=== PATIENT | female | born 1950 | race Caucasian/White ===

== ENCOUNTER 2017-04-25 16:05 | Outpatient (CLI) | payer BC ==
--- NOTE | 2017-04-25 18:39 | SJPRAD ---
CHEST TWO VIEWS: 04/25/17 HISTORY: Cough, wheezing, and rhonchi in the right lung base. COMPARISON: None. FINDINGS: Chest two views: Normal cardiac silhouette. The pulmonary vessels and hilum are normal. Costophrenic angles are clear. Hyperinflation. Increased interstitial markings are presumed to be chronic and are predominantly in the lung bases. An infiltrate cannot be excluded. Adequate aeration of the upper lungs. No pneumothor ax. No osseous abnormalities. On the lateral projection, small left sided diaphragmatic hernia with f at is demonstrated. IMPRESSION: 1. Hyperinflation. 2. Presumed chronic changes. Interstitial opacity in the lung bases are presumed to be chronic. Comparison with prior imaging would be beneficial. If prior imaging is not available, consider short term followup radiograph in one week. POS: DIVYA
== END 2017-04-25 16:06 | disposition home or self-care (01) ==
LOC: MWLC RAD 16:05
PROVIDERS: ATTEND Internal Medicine Geriatric Medicine
DX: J20.9 Acute bronchitis, unspecified (principal); R91.8 Other nonspecific abnormal finding of lung field

== ENCOUNTER 2017-09-18 10:11 | Emergency (ER) | payer BC | END 2017-09-18 11:00 | disposition home or self-care (01) | LOC: SCSER 10:11 | DX: S01.81XA Laceration without foreign body of other part of head, initial encounter (principal); W22.8XXA Striking against or struck by other objects, initial encounter | CPT/HCPCS: 99283 ==

== ENCOUNTER 2019-05-24 08:41 | Outpatient (CLI) | payer BC ==
--- NOTE | 2019-05-24 11:37 | ULT ---
RIGHT UPPER QUADRANT ULTRASOUND: Date: 05/24/2019 COMPARISON: None. HISTORY: Hepatic cyst. TECHNIQUE: Multiplanar Ramos scale sonographic imaging of the right upper quadrant obtained. FINDINGS: The pancreas is not well evaluated secondary to obscuration by bowel gas. The hepatic parenchyma is m ildly heterogeneous and echogenic suggesting a degree of steatosis. The small hypoechoic lesion without internal blood flow within the left lobe of the liver measuring 1 .0 x 0.7 x 0.6 cm suggesting a small, complex cyst, similar when compared to a CT examination perform ed 12/05/2016. That study demonstrated additional cysts which are not visualized on this study second red to technique. Common bile duct measures 2-3 mm, within normal limits. No gallbladder wall thickening or pericholecy stic fluid. No gallstones are noted. The right kidney measures 13.8 cm in craniocaudal dimension and demonstrates no stone, hydronephrosis , or mass. Cnc Manufacturing Engineer reports a negative Regan's sign. IMPRESSION: No acute findings. There is a very small, mildly complex cyst noted within the left lobe of the liver . Increased echogenicity of the hepatic parenchyma suggests hepatocellular disease, such as steatosis , limiting detailed assessment of the hepatic parenchyma. POS: TPC
== END 2019-05-24 08:42 | disposition home or self-care (01) ==
LOC: SCSULT 08:41
PROVIDERS: ATTEND Family Medicine
DX: K76.89 Other specified diseases of liver (principal); R93.2 Abnormal findings on diagnostic imaging of liver and biliary tract
CPT/HCPCS: 76705

== ENCOUNTER 2019-07-04 12:08 | Outpatient (CLI) | payer BC ==
--- NOTE | 2019-07-04 12:31 | RAD ---
EXAM: Two views chest PROVIDED CLINICAL HISTORY: None COMPARISON: None FINDINGS: Cardiac and mediastinal silhouette appears within normal limits. Lungs appear free of significant opa city. No pleural fluid or pneumothorax apparent. IMPRESSION: No evidence for an acute cardiopulmonary process.
== END 2019-07-04 12:09 | disposition home or self-care (01) ==
LOC: BICRAD 12:08
PROVIDERS: ATTEND Internal Medicine Cardiovascular Disease
DX: I77.810 Thoracic aortic ectasia (principal)
CPT/HCPCS: 71046

== ENCOUNTER 2019-08-14 08:37 | Observation (INO) | payer BC, MEDICARE ==
[2019-08-14] MEDS ORDERED: Aspirin Chewable 81 MG TAB ONE (09:06)
[2019-08-14] MEDS ORDERED: Nitroglycerin 2% Ointment 1 INCH/1 GM Packet ONE (09:06)
[2019-08-14 09:19] LABS: #Basophils 0.1 thou/uL (0.0-0.2); #Eosinphils 0.3 thou/uL (0.0-0.7); #Lymphocytes 1.6 thou/uL (1.20-3.40); #Monocytes 0.7 thou/uL (0.11-0.59); #Neutrophils 5.6 thou/uL (1.40-6.50); %Basophils 1.1 % (0.0-1.0); %Eosinophils 3.3 % (0.0-10.0); %Lymphocytes 19.1 % (21.0-51.0); %Monocytes 8.3 % (0.0-10.0); %Neutrophils 68.2 % (42.0-75.0); Hemoglobin 16.1 g/dL (12.0-16.0); Mean Corpuscular HGB CONC 34.7 g/dL (32.0-36.0); Mean Platelet Volume 5.9 fL (7.4-10.4); Platelet Count 354 thou/uL (130-400); RBC Distribution Width 12.6 % (11.5-14.5); Red Blood Cell (RBC) Count 4.72 mill/uL (4.20-5.40); White Blood Cell (WBC) Count 8.1 thou/uL (4.8-10.8)
--- NOTE | 2019-08-14 09:25 | RAD ---
PORTABLE CHEST: Date: 08/14/2019 HISTORY: Chest pressure with irregular heartrate. FINDINGS: Heart size is slightly enlarged. Aorta is mildly tortuous. The lungs are clear of infiltrates. There are no signs of failure. IMPRESSION: Mild cardiomegaly. POS: ALEJO
[2019-08-14 09:41] LABS: ALT (SGPT) 10 U/L (8-55); AST (SGOT) 12 U/L (5-34); Albumin 4.1 g/dL (3.4-4.8); Alkaline Phosphatase 100 U/L (40-110); Anion Gap 14 mmol/L (10-20); BUN (Urea Nitrogen) 14 mg/dL (9.8-20.1); Bilirubin, Total 0.6 mg/dL (0.2-1.2); CK (CPK) 44 U/L (29-168); Calc. Creatinine Clearance 0 mL/min (70-130); Calcium 9.3 mg/dL (7.8-10.44); Carbon Dioxide 25 mmol/L (23-31); Chloride 106 mmol/L (98-107); Estimated GFR-MDRD 68; Globulin 3.1 g/dL (2.4-3.5); Glucose 95 mg/dL (80-115); Potassium 4.6 mmol/L (3.5-5.1); Protein, Total 7.2 g/dL (6.0-8.3); Sodium 140 mmol/L (136-145)
[2019-08-14] MEDS ORDERED: Acetaminophen 325 MG TAB PO PRN (12:42)
[2019-08-14 13:38] LABS: Troponin I 0.035 ng/mL (< 0.028)
[2019-08-14 14:07] VITALS: BMI 44.1
--- NOTE | 2019-08-14 15:26 | HP ---
PRIMARY CARE: Zac Collazo MD CHIEF COMPLAINT: Chest discomfort. HISTORY OF PRESENT ILLNESS: The patient is a 68-year-old female with hypertension and hyperlipidemia presented to the emergency room with above complaints. The patient was evaluated by Dr. Collazo in June for a wellness check. She was found to have abnormal EKG. She was then seen by Dr. Tolentino, who recommended an echocardiogram. Due to coronavirus outbreak, echocardiogram has been postponed to end of August. Earlier today around 6 a.m., the patient had sudden onset of chest discomfort along with irregular heartbeat. The pain was pressure-like, short lasting without any aggravating or relieving factor. She denies any associated nausea, vomiting, diaphoresis, palpitations, or syncope. She returned from [place] three weeks ago and denies any new onset fever, chills, loss of smell, cough, wheezing, or GI symptoms. In the emergency room, her initial vital signs showed temperature 98.2, respirations 20, pulse of 86 with a blood pressure 142/91, O2 saturation 96% on room air. The EKG showed sinus rhythm with left axis deviation. D-dimer was negative. She received aspirin along with nitroglycerin patch in the emergency room. PAST MEDICAL HISTORY: 1. Hypertension. 2. Hyperlipidemia. 3. Hypothyroidism. 4. Obstructive sleep apnea, on CPAP. 5. Mild intermittent asthma. PAST SURGICAL HISTORY: 1. Liver biopsy. 2. . 3. Nasal septum repair. ALLERGIES: THE PATIENT DENIES ANY DRUG ALLERGIES. CURRENT HOME MEDICATION: 1. Lipitor 20 mg daily. 2. Levothyroxine 175 mcg daily. 3. Lisinopril 10 mg daily. 4. Micronized progesterone 100 mg daily. 5. Estrogen as directed. 6. Dymista nasal spray at bedtime. FAMILY HISTORY: Heart disease and hypertension runs in her family. SOCIAL HISTORY: The patient currently lives at home with her family. She is . 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 She makes her own decision with the help of her family. REVIEW OF SYSTEMS: All other review of systems were reviewed and were found negative. PHYSICAL EXAMINATION: VITAL SIGNS: As discussed above. GENERAL: A 68-year-old female, in no apparent distress. HEENT: Head, atraumatic and normocephalic. Sclerae anicteric. Moist mucous membranes. No oral lesion. NECK: Supple. No JVD. No carotid bruit. LUNGS: Clear to auscultation bilaterally. No wheezing, rales, rhonchi. HEART: S1, S2 present. Regular rate and rhythm. No rubs or gallops. ABDOMEN: Soft, nontender. Bowel sounds present. EXTREMITIES: No edema or calf tenderness. NEUROLOGIC: Grossly nonfocal. Moves all 4 extremities. PSYCHIATRY: Alert, awake, and oriented x3. SKIN: Warm and dry. LYMPH NODES: No palpable lymph nodes in the neck. Peripheral, vascular, radial pulses palpable bilaterally. MUSCULOSKELETAL: No joint swelling, tenderness. LABORATORY FINDINGS: CBC showed WBC 8.1 with hemoglobin 16.1, hematocrit 46.3, platelet of 354. D-dimer was 0.37. Chemistry showed sodium 140, potassium 4.6, chloride 106, bicarb 25, BUN of 14, creatinine 0.83, magnesium 1.9. Troponin initially was 0.022. Repeat troponin was 0.035. BNP was less than 10. IMAGING STUDIES: Chest x-ray by my review was negative for infiltrate. CARDIOVASCULAR STUDIES: EKG by my review as discussed above. IMPRESSION: 1. Chest discomfort, rule out acute coronary syndrome. 2. Morbid obesity with a body mass index of 44.1. 3. Hypertension. 4. Hyperlipidemia. 5. Obstructive sleep apnea. 6. Abnormal EKG. 7. Hypothyroidism. 8. History of hepatic cyst. 9. Chronic kidney disease, stage 2. PLAN: The patient will be monitored in the Telemetry unit. Echocardiogram will be obtained. We will consult Cardiology, Dr. Tolentino. We will keep her n.p.o. past midnight for possible stress testing. Pulmonary embolism is less likely due to negative D-dimer. She is also not hypoxic or tachycardic. There is no lower extremity swelling reported. We will continue aspirin. Resume home medications. The patient understands the above plan of care. Job ID: [id number]
[2019-08-14] MEDS ORDERED: Nitroglycerin 0.4 MG TAB (25 Tab Bottle) PO PRN (16:20)
[2019-08-14] MEDS ORDERED: Ondansetron ODT 4 MG TAB PO PRN (16:21)
[2019-08-14] MEDS ORDERED: Calcium Carbonate 500 MG ChewTAB PO PRN (16:21)
[2019-08-14] MEDS ORDERED: Ondansetron PF 4 MG/2 ML Vial IVP PRN (16:21)
[2019-08-14 17:31] LABS: Troponin I 0.032 ng/mL (< 0.028)
[2019-08-15] MEDS ORDERED: Levothyroxine 175 MCG TAB PO SCH (06:00)
[2019-08-15 08:36] VITALS: BP 127/66
[2019-08-15] MEDS ORDERED: Lisinopril 10 MG TAB PO SCH (09:00)
[2019-08-15] MEDS ORDERED: Aspirin 81 mg Enteric Coated Tablet PO SCH (09:00)
[2019-08-15] MEDS ORDERED: Atorvastatin Calcium 20 MG TAB PO SCH (09:00)
[2019-08-15 10:26] VITALS: TEMP 97.8
--- NOTE | 2019-08-15 14:11 | CON ---
DATE OF CONSULTATION: PRIMARY CARE PHYSICIAN: Dr. Zac Collazo. PRIMARY JALOUSIE INSTALLER: Dr. Viry Tolentino. REASON FOR CARDIOLOGY CONSULTATION: chest discomfort. HISTORY OF PRESENT ILLNESS: Ms. Delacruz is a very pleasant 68-year-old female with significant history of hypertension, hyperlipidemia, hypothyroidism, sleep apnea, using a CPAP at night. She presented to emergency department for chest pressure and burning sensation in bilateral lungs for 30 minutes. She was referred to Dr. Tolentino on June 2019 by her primary care doctor for abnormal EKG. The patient had an EKG done at Dr. Tolentino' office in June, which shows sinus rhythm with decreased R-wave in V1 through V6 with questionable COPD pattern with heart rate of 68. She had an echocardiogram which was yesterday at the hospital with EF 60% to 65%, suggestive of diastolic dysfunction, mild LVH, [id number] LAE, trace mitral valve regurgitation and tricuspid regurgitation, mild aortic valve regurgitation. She also complained of tachycardia at home. 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 When she listened to her heart, she noticed her heart was pounding very fast for at least 30 minutes, so the patient decided to present to the emergency department for further evaluation and treatment. Since the patient admitted to hospital, she has not had any tachycardia, chest pain, heaviness, tightness, shortness of breath, or any other cardiac complaints. The patient's blood pressure has been stable during this hospitalization. She just came back from [place], July 2013. She was quarantined for at least 2 weeks since 2 of her sisters were COVID patient. PAST MEDICAL HISTORY: Hypertension, hyperlipidemia, hypothyroidism, sleep apnea , using CPAP at night, history of congenital hole of the liver. The patient had an ultrasound done in June 2019, she was told that the result is normal. The patient was told that the patient has emphysema, ectasia of thoracic aorta in 2018. The patient's chest x-ray August 13 shows clear of infiltrate of her lungs and mildly tortuous aorta with mild cardiomyopathy. Otherwise, no evidence for acute cardiopulmonary process. PAST SURGICAL HISTORY: Liver cyst cauterized in 2006, , and nasal septum repair. FAMILY HISTORY: The patient's mother has a history of hypertension, multiple CVAs, and due to the cardiac-related complication at the age of 89. The patient's father had a history of hypertension and due to myocardial infarction. The patient's younger sister has a history of hypertension. SOCIAL HISTORY: She is . She has one daughter who is living well. She denies any tobacco abuse or illicit drug abuse. She drinks a few wine at least 5 times a week. She does not exercise. She drinks at least 2 coffee a day. ALLERGIES: SHE IS ALLERGIC TO FIRE ANTS AND BEES, WHICH CAUSE ANAPHYLACTIC REACTION. MEDICATIONS: She is on: 1. Flonase spray, azelastine twice a day. 2. Levothyroxine 175 mcg once a day. 3. Atorvastatin 20 mg once a day. 4. Lisinopril 10 mg once a day. 5. Vitamin D 5000 units daily. 6. EpiPen. REVIEW OF SYSTEMS: 12-point review of systems is negative unless otherwise mentioned in HPI. PHYSICAL EXAMINATION: VITAL SIGNS: Blood pressure 127/66, pulse is around 50 to 60 and sinus rhythm, temperature 97.8, O2 saturation 96% on room air, and respiratory rate 17. GENERAL: The patient is alert and oriented x4, not in acute distress. HEAD: Normocephalic, atraumatic. EYES: Extraocular muscle movement intact. ENT AND MOUTH: Oral and nasal mucosa moist without lesions. NECK: Supple. Normal range of motion. No JVD. No bruit or thrill noted at the carotid artery area. RESPIRATORY: Clear to auscultate bilaterally. No wheezing, rales, or rhonchi noted. CARDIOVASCULAR: Regular rate and rhythm. Normal S1 and S2. There is no S3 or S4. No significant murmur, hives, or thrill noted. 2+ pulses in bilateral upper and lower extremities. No edema in the lower extremities. ABDOMEN: Soft, nontender. No mass to palpitate. Bowel sounds are present. SKIN: Warm and dry. No lesion, rash, or erythema noted except discoloration in the bilateral around ankle area. MUSCULOSKELETAL: The patient able to move all extremities. The patient denied claudication in the lower extremities. NEUROLOGIC: The patient is alert and oriented x4, nonfocal. PSYCHIATRIC: The patient's mood is appropriate. LABORATORY DATA: WBC 8.1, hemoglobin 16.1, hematocrit 46.3, platelets 134. Sodium 140, potassium 4.6, BUN 14, creatinine 0.83, glucose 95, magnesium 1.9, AST 12, ALT 10, creatine kinase 44. Troponin is 0.022, 0.035, 0.032, and 0.024. BNP is less than 10. TSH is 2.1749. ASSESSMENT AND PLAN: 1. Chest pain. The patient's symptom was about 30 minutes. The patient's 12-lead EKG did not show any ST segment changes. Her troponin levels have been within normal range. The patient's vital signs are stable at this moment. The patient is stable enough to discharge today and have a stress test as outpatient. The patient was recommended to present to the emergency department or call the Dr. Tolentino' office as soon as possible if the patient started having any cardiac-related symptoms. 2. Hypertension. The patient's blood pressure is stable at this moment with current medication. 3. Hyperlipidemia. The patient is on atorvastatin and. 4. Sleep apnea. She will have a sleep apnea machine at the bedside. She is using it every night according to the patient. 5. Obesity. The patient was recommend to start watching her diet and weight management. Thank you very much for Cardiology Service to participate in care of this patient. We will follow the patient. If the patient is stable, the patient can be discharged and have a stress test as outpatient at Dr. Tolentino' office. Job ID: [id number] MTDD
--- NOTE | 2019-08-15 14:57 | EKG ---
Test Reason : CP Blood Pressure : / mmHG Vent. Rate : 082 BPM Atrial Rate : 082 BPM P-R Int : 142 ms QRS Dur : 080 ms QT Int : 360 ms P-R-T Axes : 002 -33 002 degrees QTc Int : 420 ms Normal sinus rhythm Left axis deviation Low voltage QRS Inferior infarct , age undetermined Cannot rule out Anterior infarct , age undetermined Abnormal ECG Confirmed by SANTO BINGHAM, URSULA ([id number]), story editor HAL CURTIS ([id number]) on 08/15/2019 2:56:53 PM Referred By: Yonis Bailey Confirmed By:URSULA BLANCHARD MD
--- NOTE | 2019-08-16 06:15 | CON ---
DATE OF CONSULTATION: 08/15/2019 ADDENDUM: INDICATION FOR ADMISSION: This is a 68-year-old female, for the consultation who has a history of hypertension, dyslipidemia, hypothyroidism, sleep apnea. She had been at home, started noticing some chest discomfort with burning type sensation, and heaviness. She presented to the emergency room. EKG was unremarkable. Cardiac enzymes were also unremarkable. No evidence of indication that she may have had a myocardial infarction. She had an echocardiogram which showed some degree of diastolic dysfunction with normal ejection fraction without evidence of wall motion abnormalities. She did have some left atrial dilatation as well as some trace mitral valve regurgitation and some mild left ventricular hypertrophy. She had noticed an episode of tachycardia at home. She felt her pulse, and she thought she was having some atrial fibrillation. This lasted for probably 5 or 10 minutes and she felt like she needed to be seen in the emergency room. She came to the hospital. She had recently come back from a trip from [place], but denied any symptoms of a viral etiology. She had been quarantined, I believe, for 2 weeks since apparently 2 of her sisters had COVID diagnosis. At this time, she is remaining stable in the hospital. Echo is unremarkable as noted. Given her history, she has had no further symptoms as far as her chest discomfort is concerned. She is still concerned that she may have COVID virus, but she has not been evaluated. At this time, I believe she is stable to discharge to home and further evaluation can be done as an outpatient. I did examine her. Her chest was clear to auscultation. Cardiovascular exam revealed a regular rate and rhythm. She had no gross murmurs noted. She had no palpitations. She had no lower extremity edema. Abdominal exam also was unremarkable. Her blood pressure was 127/66. She was afebrile. Her heart rate was 58 and O2 saturation was 95% on room air. At this time, I believe that further workup can be undertaken as an outpatient, and would suggest the patient be discharged to home. Otherwise, I would agree with the assessment and plan as outlined by my nurse practitioner. Job ID: [id number]
--- NOTE | 2019-08-16 08:27 | DIS ---
DATE OF ADMISSION: 08/14/2019 DATE OF DISCHARGE: 08/15/2019 DISCHARGE DISPOSITION: Home. FOLLOWUP: 1. Follow up with primary care physician, Dr. Collazo, in 1 week. 2. Follow up with Cardiology, Dr. Tolentino, in 1 to 2 weeks. 3. Event monitor will be arranged by Dr. Tolentino' office. 4. Stress test as outpatient is recommended. Patient was seen on the day of discharge. Denies any new complaints. No new chest pain or palpitations reported. BRIEF HOSPITAL COURSE: Patient is a 68-year-old female, who presented to the emergency room with chest discomfort. Please refer to the history and physical for further details. The patient was admitted to the hospital with a diagnosis of chest discomfort rule out acute coronary syndrome. She also had some irregular heartbeat at home. She was evaluated by Cardiology, Dr. Tolentino. She had troponins in the indeterminate range. Her electrolytes were normal. An echocardiogram was obtained that showed ejection fraction of 60% to 65% with mild left ventricular hypertrophy, mild aortic regurgitation, and mild tricuspid regurgitation. An event monitor will be arranged by Dr. Tolentino. She is chest pain free at this time. She will undergo a stress test as outpatient. FINAL DIAGNOSES: 1. Chest discomfort, acute coronary syndrome ruled out. 2. Hypertension. 3. Hyperlipidemia. 4. Obstructive sleep apnea. 5. Morbid obesity with a BMI of 44.1. 6. Abnormal EKG. 7. Hypothyroidism. 8. Chronic kidney disease, stage 2. 9. History of hepatic cyst. Patient understands the above plan of care. Job ID: [id number]
== END 2019-08-15 12:25 | disposition home or self-care (01) ==
LOC: ERS 08:37 → 2NO 10:26
PROVIDERS: ADMIT Internal Medicine; ATTEND Internal Medicine
DX: R07.89 Other chest pain (principal); I12.9 Hypertensive chronic kidney disease with stage 1 through stage 4 chronic kidney disease, or unspecified chronic kidney disease; N18.2 Chronic kidney disease, stage 2 (mild); E03.9 Hypothyroidism, unspecified; E78.5 Hyperlipidemia, unspecified; J45.909 Unspecified asthma, uncomplicated; G47.33 Obstructive sleep apnea (adult) (pediatric); E66.01 Morbid (severe) obesity due to excess calories; Z68.41 Body mass index [BMI] 40.0-44.9, adult; Z79.899 Other long term (current) drug therapy
CPT/HCPCS: 36415; 71045; 80053; 82550; 83735; 83880; 84443; 84484; 85025; 85379; 93005; 93306; 96360; 96361; G0378

== ENCOUNTER 2020-01-02 10:37 | Outpatient (CLI) | payer BC | END 2020-01-02 10:38 | disposition home or self-care (01) | LOC: CTENTCT 10:37 | PROVIDERS: ATTEND Student in an Organized Health Care Education/Training Program | DX: J32.9 Chronic sinusitis, unspecified (principal) | CPT/HCPCS: 70486 ==

== ENCOUNTER 2020-09-21 09:36 | Inpatient (IN) | payer MEDICARE, BC ==
[2020-09-21] MEDS ORDERED: Magnesium 2 GM/50 ML BAG (IN WATER) ONE (10:17)
[2020-09-21] MEDS ORDERED: Aspirin Chewable 81 MG TAB ONE (10:25)
[2020-09-21] MEDS ORDERED: Diltiazem 125 MG/25 ML ONE (10:25)
[2020-09-21 10:33] LABS: #Basophils 0.1 thou/uL (0.0-0.2); #Eosinphils 0.4 thou/uL (0.0-0.7); #Lymphocytes 1.6 thou/uL (1.20-3.40); #Monocytes 0.8 thou/uL (0.11-0.59); #Neutrophils 4.3 thou/uL (1.40-6.50); %Basophils 0.7 % (0.0-1.0); %Eosinophils 5.5 % (0.0-10.0); %Lymphocytes 22.6 % (21.0-51.0); %Monocytes 10.7 % (0.0-10.0); %Neutrophils 60.5 % (42.0-75.0); Hemoglobin 15.9 g/dL (12.0-16.0); Mean Corpuscular HGB CONC 33.3 g/dL (32.0-36.0); Mean Corpuscular Hemoglobin 33.4 pg (27.0-31.0); Mean Platelet Volume 5.9 fL (7.4-10.4); Platelet Count 391 thou/uL (130-400); RBC Distribution Width 12.1 % (11.5-14.5); Red Blood Cell (RBC) Count 4.78 mill/uL (4.20-5.40); White Blood Cell (WBC) Count 7.1 thou/uL (4.8-10.8)
[2020-09-21 10:35] LABS: Bacteria/HPF 2+ HPF (None Seen); Bilirubin Negative (Negative); Blood, Urine Trace (Negative); Clarity Clear (Clear); Glucose, Urine (Dipstick) Normal (Negative); Ketone, Urine Negative (Negative); Leukocyte Negative Leu/uL (Negative); Nitrite Negative (Negative); Protein, Urine (Dipstick) Negative (Neg-Trace); RBC/HPF 0-3 HPF (0-3); Specific Gravity, Urine 1.006 (1.002-1.036); Squamous Epithelial 0-3 HPF (0-3); Urobilinogen Normal mg/dL (Less than 2); WBC/HPF 0-3 HPF (0-3)
[2020-09-21 10:45] LABS: ALT (SGPT) 13 U/L (8-55); AST (SGOT) 17 U/L (5-34); Albumin 3.9 g/dL (3.4-4.8); Alkaline Phosphatase 88 U/L (40-110); Anion Gap 14 mmol/L (10-20); BUN (Urea Nitrogen) 12 mg/dL (9.8-20.1); Bilirubin, Total 0.5 mg/dL (0.2-1.2); Calc. Creatinine Clearance 0 mL/min (70-130); Calcium 9.1 mg/dL (7.8-10.44); Carbon Dioxide 23 mmol/L (23-31); Chloride 108 mmol/L (98-107); Globulin 3.1 g/dL (2.4-3.5); Glucose 114 mg/dL (83-110); Potassium 4.2 mmol/L (3.5-5.1); Sodium 141 mmol/L (136-145)
[2020-09-21] MEDS ORDERED: Bisacodyl 5 MG TAB PO PRN (12:00)
[2020-09-21] MEDS ORDERED: Ondansetron PF 4 MG/2 ML Vial IVP PRN (12:00)
[2020-09-21] MEDS ORDERED: Acetaminophen 325 MG TAB PO PRN (12:00)
[2020-09-21 13:54] LABS: Troponin I 0.012 ng/mL (< 0.028)
[2020-09-21 20:12] VITALS: BMI 44.5
[2020-09-21 21:47] LABS: SARS-CoV-2 PCR by NAA Not Detected (NotDetected)
[2020-09-21] MEDS: Atorvastatin Calcium 20 MG TAB PO SCH (22:15)
[2020-09-22 05:04] LABS: #Basophils 0.1 thou/uL (0.0-0.2); #Eosinphils 0.5 thou/uL (0.0-0.7); #Lymphocytes 2.4 thou/uL (1.20-3.40); #Monocytes 0.7 thou/uL (0.11-0.59); #Neutrophils 4.3 thou/uL (1.40-6.50); %Basophils 1.4 % (0.0-1.0); %Eosinophils 6.8 % (0.0-10.0); %Lymphocytes 29.8 % (21.0-51.0); %Monocytes 8.3 % (0.0-10.0); %Neutrophils 53.7 % (42.0-75.0); Hemoglobin 14.4 g/dL (12.0-16.0); Mean Corpuscular Hemoglobin 33.1 pg (27.0-31.0); Platelet Count 344 thou/uL (130-400); RBC Distribution Width 12.2 % (11.5-14.5); Red Blood Cell (RBC) Count 4.36 mill/uL (4.20-5.40)
[2020-09-22 05:24] LABS: Anion Gap 13 mmol/L (10-20); BUN (Urea Nitrogen) 11 mg/dL (9.8-20.1); Calc. Creatinine Clearance 139 mL/min (70-130); Calcium 8.5 mg/dL (7.8-10.44); Carbon Dioxide 22 mmol/L (23-31); Chloride 109 mmol/L (98-107); Glucose 102 mg/dL (83-110); Potassium 3.9 mmol/L (3.5-5.1); Sodium 140 mmol/L (136-145)
[2020-09-22] MEDS: Diltiazem 125 MG in Sodium Chloride 0.9% 100 ML IVPB SCH ×2 (05:46→23:57)
[2020-09-22] MEDS: Levothyroxine 175 MCG TAB PO SCH (05:46)
[2020-09-22] MEDS ORDERED: Enoxaparin Sodium 40 MG/0.4 ML SYRINGE SC SCH (09:00)
[2020-09-22] MEDS: Lisinopril 10 MG TAB PO SCH (09:14)
[2020-09-22] MEDS: Atorvastatin Calcium 20 MG TAB PO SCH (20:02)
[2020-09-22] MEDS: Apixaban 5 MG TAB PO SCH (20:04)
[2020-09-23 04:29] LABS: Hemoglobin 13.9 g/dL (12.0-16.0); Platelet Count 336 thou/uL (130-400)
[2020-09-23] MEDS: Levothyroxine 175 MCG TAB PO SCH (05:43)
[2020-09-23] MEDS ORDERED: Mometasone 200 MCG/Formoterol 5 MCG 120 PUFF INHALER INH SCH ×2 (08:30→18:30)
[2020-09-23] MEDS: Lisinopril 10 MG TAB PO SCH (08:42)
[2020-09-23] MEDS: Apixaban 5 MG TAB PO SCH (08:42)
[2020-09-23 12:27] VITALS: TEMP 98.1
[2020-09-23 15:28] VITALS: BP 139/84
== END 2020-09-23 16:49 | disposition home or self-care (01) | DRG 309 ==
LOC: ERS 09:36 → ERHOLD 11:28 → 2NO 18:24
PROVIDERS: ADMIT Internal Medicine; ATTEND Internal Medicine
DX: I48.91 Unspecified atrial fibrillation (principal); Z68.41 Body mass index [BMI] 40.0-44.9, adult; Z23 Encounter for immunization; Z20.822 Contact with and (suspected) exposure to COVID-19; E78.5 Hyperlipidemia, unspecified; I10 Essential (primary) hypertension; E03.9 Hypothyroidism, unspecified; G47.30 Sleep apnea, unspecified; E66.01 Morbid (severe) obesity due to excess calories; J45.909 Unspecified asthma, uncomplicated; Z79.890 Hormone replacement therapy; Z79.51 Long term (current) use of inhaled steroids; Z79.899 Other long term (current) drug therapy
CPT/HCPCS: 36415; 71045; 80048; 80053; 81003; 81015; 82565; 83880; 84443; 84484; 85014; 85018; 85025; 85049; 87635; 90471; 90732; 93005; 93306; 96365; 96366; 96367; 96376; G0009; J1650; J3475; J3490; U0003; U0005